=== PATIENT | male | born 1940 | race Caucasian/White ===

== ENCOUNTER 2016-09-17 03:41 | Emergency (ER) | payer MEDICARE, BC ==
[2016-09-17 04:31] VITALS: BP 120/69
--- NOTE | 2016-09-17 04:42 | ERNOTE ---
Medical Problem HPI - Narrative Date of Service: 09/17/16 - General Time Seen by Provider: 09/17/16 04:26 Source: patient - Immun/Allergies/Home Medications Immunizations: IMMUNIZATION HX Immunizations Up to Date Yes History of Influenza Vaccine Yes Hx Pneumococcal Vaccination Yes Allergies/Adverse Reactions: Allergies No Known Allergies Allergy (Verified 04/19/15 07:29) Home Medications: HOME MEDICATIONS Levothyroxine Sodium [Synthroid] 25 mcg PO DAILY 09/01/13 [Last Taken Unknown] Sildenafil Citrate [Viagra] 100 mg PO DAILY PRN 09/01/13 [Last Taken Unknown] Simvastatin [Zocor] 40 mg PO DAILY 09/01/13 [Last Taken Unknown] Testosterone Cypionate [Depo-Testosterone] 200 mg IM Q14D 09/01/13 [Last Taken Unknown] Cyanocobalamin [Vitamin B-12] 1,000 mcg PO DAILY 04/19/15 [Last Taken Unknown] Sildenafil Citrate [Viagra] 100 mg PO PRN PRN 04/19/15 [Last Taken Unknown] Ondansetron [Zofran Odt] 4 mg PO Q6H PRN #20 tab 09/17/16 [Last Taken Unknown] - History of Present History Narrative: pt has had some nausea and one episode of vomiting two days ago. Then he felt better and ate a hamburger yesterday. He was feeling well and watched the football game today. Now feels slightly nauseated. He has not been eating well today. Denies any fevers or chills. Review of Systems - Review of Systems Constitutional: Present: weakness EYE: Present: no symptoms reported ENT: Present: no symptoms reported Respiratory: Present: no symptoms reported Cardiology: Present: no symptoms reported Gastrointestinal/Abdominal: Present: nausea. Absent: vomiting Neurological: Present: no symptoms reported - Patient's Past Medical History Patient History - Surgical Procedures: Colonoscopy Patient History - Other: None - Family History Mother Family History - Medical: Family History - Cardiac/Respiratory: Myocardial Infarction Father Family History - Medical: Family History - Cardiac/Respiratory: Myocardial Infarction Brother Family History - Medical: Family History - Cardiac/Respiratory: Myocardial Infarction Sister Family History - Cardiac/Respiratory: Pulmonary Embolism - Social History Living Situations: spouse Abuse History: No History of abuse Psych History: No pertinent hx Alcohol Use: occasionally - Immunizations Immunizations Up to Date: Yes Hx Pneumococcal Vaccination: Yes History of Influenza Vaccine: Yes Physical Exam - Physical Exam Narrative: orthostatics are negative General Appearance: Present: wd/wn, alert, no apparent distress Eye Exam: Normal inspection: bilateral, PERRL: bilateral, EOMI: bilateral Ears, Nose, Throat: Present: normal ENT inspection, hearing grossly normal, normal pharynx Respiratory: Present: no respiratory distress, normal breath sounds, no accessory muscle use, chest nontender Cardiovascular/Chest: Present: regular rate, rhythm, no murmur, normal peripheral pulses Gastrointestinal/Abdominal: Present: normal bowel sounds, nontender, nondistended, soft Neurological Exam: Present: alert, oriented, normal mood/affect ED Progress - Vital Signs Patient's Vital Signs:: I have reviewed the patient's vital signs. Vital Signs: Vital Signs 09/17/16 04:27 Pulse Rate 68 Blood Pressure 120/69 Departure - Departure Clinical Impression: Nausea Disposition: Home Follow Up Needed Instructions: Rehydration, Adult Referrals: Jeffrey Crawford MD [Primary Care Provider] - Prescriptions: Ondansetron [Zofran Odt] 4 mg PO Q6H PRN #20 tab PRN Reason: Nausea
[2016-09-17] MEDS ORDERED: ONDANSETRON 4 MG TAB.RAPDIS ONE (04:48)
[2016-09-17] MEDS ORDERED: ONDANSETRON 4 MG TAB.RAPDIS PO ONE (04:49)
== END 2016-09-17 04:45 | disposition home or self-care (01) ==
LOC: ER 03:41
DX: R11.0 Nausea (principal)

== ENCOUNTER 2018-02-23 17:02 | Observation (INO) | payer BC, MEDICARE ==
[2018-02-23] MEDS ORDERED: ONDANSETRON HCL/PF 2 MG/ML VIAL IV ONE ×3 (17:12→18:28)
[2018-02-23] MEDS ORDERED: NORMAL SALINE 1,000 ML IV PRN (17:12)
--- NOTE | 2018-02-23 17:13 | ERNOTE ---
<Keyshawn Jefferson - Last Filed: 02/23/18 19:51> Syncope ER HPI Date of Service: 02/23/18 Stated Complaint: abdominal pain and vomiting Time Seen by Provider: 02/23/18 17:10 Source: patient, EMS Exam Limitations: no limitations Immunizations: IMMUNIZATION HX Immunizations Up to Date Yes Allergies/Adverse Reactions: Allergies No Known Allergies Allergy (Unverified 02/23/18 17:10) Home Medications: HOME MEDICATIONS Aspirin [Aspirin EC] 81 mg PO DAILY 02/23/18 [Last Taken Unknown] Levothyroxine Sodium [Synthroid] 50 mcg PO DAILY 02/23/18 [Last Taken Unknown] Multivitamin [Multivitamins] 1 each PO DAILY 02/23/18 [Last Taken Unknown] Polyethylene Glycol 3350 [Miralax] 17 gm PO DAILY PRN 02/23/18 [Last Taken Unknown] Sildenafil Citrate [Viagra] 100 mg PO DAILY PRN 02/23/18 [Last Taken Unknown] Simvastatin [Zocor] 40 mg PO DAILY 02/23/18 [Last Taken Unknown] Testosterone [Androgel] 100 mg TD DAILY 02/23/18 [Last Taken Unknown] - History of Present Illness Narrative: This patient is a 77-year-old male who arrived by ambulance after a syncopal episode. He said that he started not feeling well after breakfast at 8:30 AM. He had upper abdominal discomfort that he describes as his abdomen getting hard. He felt nauseated and was trying to vomit. While he was trying to vomit, he was sitting on the edge of the tub and had the syncopal episode. He has since vomited and feels better. He is not nauseated at this time. He denies fever or diarrhea. He has not had abdominal surgery. His last bowel movement was 2 days ago. He does not remember passing gas. Review of Systems - Review of Systems Constitutional: Present: chills, malaise EYE: Present: no symptoms reported ENT: Present: no symptoms reported Respiratory: Present: no symptoms reported Cardiology: Present: syncope, other - he has had skipped beats in the past which have been worked up. Absent: chest pain Gastrointestinal/Abdominal: Present: See HPI - there is no blood in the vomit Genitourinary: Present: no symptoms reported Musculoskeletal: Present: no symptoms reported Skin: Present: other - he was diaphoretic for the paramedics Neurological: Present: no symptoms reported Hematologic/Lymphatic: Absent: easy bleeding Psych: Present: no symptoms reported Medical History (Last Reviewed 02/23/18 @ 18:20 by Keyshawn Jefferson MD) Hyperlipidemia Hypothyroidism Surgical History: Surgical History (Last Reviewed 02/23/18 @ 18:20 by Keyshawn Jefferson MD) History of shoulder surgery Social History: Preferred Language Israeli Do you have any episcopalian or No cultural preference? Smoking Status Never smoker Alcohol Use heavy Drug Use none Physical Exam - Physical Exam General Appearance: Present: wd/wn, alert, no apparent distress Head Exam: Present: normal inspection, no evidence of injury Eye Exam: Normal inspection: bilateral Ears, Nose, Throat: Present: normal ENT inspection Neck: Present: normal inspection Respiratory: Present: no respiratory distress, normal breath sounds, no accessory muscle use, lungs clear Cardiovascular/Chest: Present: regular rate, rhythm, no murmur Gastrointestinal/Abdominal: Present: normal bowel sounds, nondistended, soft, no organomegaly, tenderness - he has epigastric tenderness with palpation. No rebound or guarding Extremity Exam: Present: non-tender, pedal edema Neurological Exam: Present: alert, oriented, normal mood/affect, no motor/ sensory deficits Skin Exam: Present: normal color, warm/dry ED Progress - Results and Orders Patient's Lab Results:: I have reviewed the patient's lab results. - Vital Signs Patient's Vital Signs:: I have reviewed the patient's vital signs. Vital Signs: Vital Signs 02/23/18 17:05 Temperature 36.2 C Pulse Rate 75 Respiratory Rate 12 Blood Pressure 146/79 O2 Sat by Pulse Oximetry 96 - X-Ray X-Ray #1 X-Ray: abdomen - dilated loops of bowel. No free air. - Progress/Reassessment Chief Complaint: Syncopal Episode - Transfer of Care Physician Sign Out: Keyshawn Jefferson Receiving Physician: Ronal Xavier Pending Results: CT/MRI results Expected Disposition: Admit Departure Clinical Impression: Small bowel obstruction - Departure Disposition: Still a patient Condition: Fair <Ronal Xavier - Last Filed: 02/23/18 22:54> Syncope ER HPI Immunizations: IMMUNIZATION HX Immunizations Up to Date Yes Medical History (Last Reviewed 02/23/18 @ 18:20 by Keyshawn Jefferson MD) Hyperlipidemia Hypothyroidism Surgical History: Surgical History (Last Reviewed 02/23/18 @ 18:20 by Keyshawn Jefferson MD) History of shoulder surgery Social History: Preferred Language Israeli Do you have any episcopalian or No cultural preference? Smoking Status Never smoker Alcohol Use heavy Drug Use none ED Progress - Date and Time Seen: Date and Time: 02/23/18 22:48 conditiion unchanged - Vital Signs Vital Signs: Vital Signs 02/23/18 17:05 02/23/18 17:28 02/23/18 17:29 Temperature 36.2 C Pulse Rate 75 76 75 Respiratory Rate 12 16 Blood Pressure 146/79 155/85 H O2 Sat by Pulse Oximetry 96 96 02/23/18 18:41 02/23/18 19:00 02/23/18 19:28 Temperature Pulse Rate 88 78 78 Respiratory Rate 18 20 18 Blood Pressure 150/78 H 142/78 141/82 O2 Sat by Pulse Oximetry 94 93 93 02/23/18 20:00 02/23/18 20:30 02/23/18 21:00 Temperature Pulse Rate 78 80 81 Respiratory Rate 19 21 H 12 Blood Pressure 147/78 137/78 145/82 O2 Sat by Pulse Oximetry 94 93 94 02/23/18 21:46 02/23/18 22:00 Temperature Pulse Rate 78 81 Respiratory Rate 16 17 Blood Pressure 155/85 H 144/89 O2 Sat by Pulse Oximetry 93 93 - X-Ray X-Ray #1 Interpretation: Interp. by me - small bowel obstruction - Progress/Reassessment Progress:: Unchanged Plan - Plan Plan: to be admitted case discussed with qing potts
[2018-02-23] MEDS ORDERED: ONDANSETRON HCL/PF 2 MG/ML VIAL ONE ×2 (17:30→18:28)
[2018-02-23 17:41] LABS: Hemoglobin 16.9 gm/dL (13.5-18.0); Mean Cell Volume 96.3 fl (78-100); Mean Corpuscular Hemoglobin 31.3 pg (27-31); Mean Corpuscular Hgb Conc 32.5 g/dl (32-36); Mean Platelet Volume 10.7 fl (8-11.3); Neutrophil # 7.4 K/mm3 (1.3-6.0); Neutrophil % 85.9 % (42-75.0); Platelet Count 197 K/mm3 (150-450); Red Cell Distribution Width 13.9 % (11.5-14.0); White Blood Count 8.6 K/mm3 (4.0-10.5)
[2018-02-23 17:43] LABS: Urine Appearance Clear (CLEAR); Urine Color Yellow
[2018-02-23 17:44] LABS: Urine Bacteria None Seen; Urine Bilirubin Negative (NEGATIVE); Urine Blood Negative /ul (NEGATIVE); Urine Ketone 5 mg/dL (NEGATIVE); Urine Nitrite Negative (NEGATIVE); Urine Protein Negative (NEGATIVE); Urine RBC None Seen /hpf (0-5); Urine Urobilinogen Normal (NORMAL); Urine WBC 0-5 /hpf (0-5)
[2018-02-23 17:49] LABS: Albumin * 3.5 gm/dl (3.4-5.0); Anion Gap 11.2 mmol/L (6.8-13.8); BUN/Creatinine Ratio 18.1 (9.0-21.6); Bilirubin, Total 0.5 mg/dL (0.0-1.1); Ca. Corrected For Albumin 8.8 mg/dL (8.4-10.2); Calcium * 8.7 mg/dL (7.9-10.9); Carbon Dioxide 31.1 mmol/L (24-32.6); Potassium 4.3 mmol/L (3.4-4.6); Total Protein 6.9 gm/dL (6.2-8.2)
[2018-02-23] MEDS ORDERED: DIATRIZOATE MEGLUMINE, SODIUM 30 ML BTL ONE (18:20)
[2018-02-23] MEDS ORDERED: DIATRIZOATE MEGLUMINE, SODIUM 30 ML BTL PO ONE (18:24)
[2018-02-23] MEDS ORDERED: ONDANSETRON HCL/PF 2 MG/ML VIAL IV PRN (22:56)
[2018-02-23] MEDS: NORMAL SALINE 1,000 ML IV PRN (23:09)
[2018-02-24] MEDS ORDERED: KETOROLAC TROMETHAMINE 30 MG/ML VIAL IV PRN (01:24)
[2018-02-24] MEDS: NORMAL SALINE 1,000 ML IV PRN (07:20)
--- NOTE | 2018-02-24 17:10 | HP ---
Chief Complaint - Chief Complaint Date of Service: 02/24/18 Time of Service: 08:00 Chief Complaint: Abdominal Pain History of Present Illness: Pranay is a 77 yo male presenting to [facility] ER with abdominal pain and no bowel movement for the last few days. He denies fever, chills. No change in diet or medications.Imaging in the ER shows evidence of bowel obstruction. Medical History (This Medical Record has been edited. Action required.) Varicose veins of lower extremity (Chronic) Hypothyroidism (Chronic) Hypogonadism (Chronic) GERD (gastroesophageal reflux disease) (Chronic) Sleep apnea (Chronic) Hyperlipidemia Hypothyroidism Wears glasses Surgical History: Surgical History (This Medical Record has been edited. Action required.) History of shoulder surgery [id number] Onset Date: ~05/27/12 H/O esophagogastroduodenoscopy Onset Date: ~09/08/13 H/O prostate biopsy Onset Date: ~02/2005 Hx of colonoscopy Onset Date: ~2004 rotator cuff repair Onset Date: ~10/10/09 stress test Onset Date: ~08/23/17 Family History: Family History (This Medical Record has been edited. Action required.) Brother Heart disease diabetes mellitus Brother Heart problem Father hyperlipidemia Thyroid disease Mother diabetes mellitus Sister No problems noted. Sister blood clot Mother Diabetes Father Heart disease Brother Heart disease Social History: Patient Lives/Resources With Spouse Utilized Occupation retired Preferred Language Georgian Do you have any confucianism or Yes: orthodox cultural preference? Smoking Status Never smoker Have you smoked in the past 12 No months Do you dip or chew tobacco No Alcohol Use heavy Drug Use none Review Of Systems (GEN) - Review of Systems Generalized/Overall Review: Present: Chills. Absent: Weakness, Fever EENTM: Present: No Symptoms Reported Respiratory: Absent: Cough, Shortness of Breath Cardiac: Absent: Chest Pain, Edema Abdominal: Present: Nausea, Abdominal Pain, Constipation Genitourinary: Present: No Symptoms Reported Musculoskeletal: Present: No Symptoms Reported Skin: Present: No Symptoms Reported Endocrine: Present: No Symptoms Reported Immunizations: IMMUNIZATION HX Immunizations Up to Date Yes Allergies/Adverse Reactions: Allergies Allergy/AdvReac Type Severity Reaction Status Date / Time No Known Allergies Allergy Verified 02/25/18 09:30 Home Medications: HOME MEDICATIONS Testosterone Cypionate [Depo-Testosterone] 200 mg IM Q14D 09/01/13 [Last Taken Unknown] Cyanocobalamin [Vitamin B-12] 1,000 mcg PO DAILY 04/19/15 [Last Taken Unknown] Sildenafil Citrate [Viagra] 100 mg PO PRN PRN 04/19/15 [Last Taken Unknown] Ondansetron [Zofran Odt] 4 mg PO Q6H PRN #20 tab 09/17/16 [Last Taken Unknown] aspirin 81 mg tablet,delayed release 81 mg PO DAILY 02/20/18 [Last Taken Unknown ] levothyroxine 50 mcg capsule 50 mcg PO DAILY 02/20/18 [Last Taken Unknown] multivitamin tablet 1 tab PO DAILY 02/20/18 [Last Taken Unknown] polyethylene glycol 3350 17 gram/dose oral powder PO 02/20/18 [Last Taken Unknown] simvastatin 40 mg tablet 40 mg PO DAILY 02/20/18 [Last Taken Unknown] testosterone 1 % (50 mg/5 gram) transdermal gel packet 2 packet TP DAILY [Last Taken Unknown] Aspirin [Aspirin EC] 81 mg PO DAILY 02/23/18 [Last Taken Unknown] Cetirizine HCl [Zyrtec] 10 mg PO DAILY PRN 02/23/18 [Last Taken Unknown] Levothyroxine Sodium [Synthroid] 50 mcg PO DAILY 02/23/18 [Last Taken Unknown] Multivitamin [Multivitamins] 1 each PO DAILY 02/23/18 [Last Taken Unknown] Polyethylene Glycol 3350 [Miralax] 17 gm PO DAILY PRN 02/23/18 [Last Taken Unknown] Sildenafil Citrate [Viagra] 100 mg PO DAILY PRN 02/23/18 [Last Taken Unknown] Simvastatin [Zocor] 40 mg PO DAILY 02/23/18 [Last Taken Unknown] Testosterone [Androgel] 100 mg TD DAILY 02/23/18 [Last Taken Unknown] Exam - Exam Vital Signs: Vital Signs - Last Taken Temp 36.7 C 02/24/18 14:25 Pulse 60 02/24/18 14:25 Resp 16 02/24/18 14:25 BP 126/63 02/24/18 14:25 Pulse Ox 96 02/24/18 14:25 Constitutional: Present: Alert, Oriented x3, Cooperative ENT Exam: Present: hearing grossly normal Eye Exam: bilateral eye: normal inspection Respiratory: Present: lungs clear, normal breath sounds Cardiovascular/Chest: Present: regular rate, rhythm, no edema, no murmur Abdomen: Present: tender - mild diffuse tenderness, hypoactive Skin Exam: Present: normal color, warm/dry, no cyanosis Appearance: Present: appropriate appearance, appropriate insight Eye contact: Present: cooperative, good eye contact Diagnostic Studies: Abnormal Lab Results 02/23/18 02/23/18 Range/Units 17:31 17:31 MCH 31.3 H (27-31) pg Neutrophils % 85.9 H (42-75.0) % Lymphocytes % 7.7 L (20-51) % Neutrophils # 7.4 H (1.3-6.0) K/mm3 Lymphocytes # 0.66 L (1.5-3.5) k/mm3 Sodium 144 H (132-142) mmol/L Plasma Sodium 145 H (130-142) mmol/L Random Glucose 143 H (70-110) mg/dL Laboratory Results WBC 8.6 K/mm3 (4.0-10.5) 02/23/18 17:31 RBC 5.40 M/mm3 (4.7-6.0) 02/23/18 17:31 Hgb 16.9 gm/dL (13.5-18.0) 02/23/18 17:31 Hct 52.0 % (42.0-52.0) 02/23/18 17:31 MCV 96.3 fl (78-100) 02/23/18 17:31 MCH 31.3 pg (27-31) H 02/23/18 17:31 MCHC 32.5 g/dl (32-36) 02/23/18 17:31 RDW 13.9 % (11.5-14.0) 02/23/18 17:31 Plt Count 197 K/mm3 (150-450) 02/23/18 17:31 MPV 10.7 fl (8-11.3) 02/23/18 17:31 Immature Gran % (Auto) 0.10 % (0.001-0.429) 02/23/18 17:31 Immature Gran # (Auto) 0.01 K/mm3 (0.000-0.0310) 02/23/18 17:31 Neutrophils % 85.9 % (42-75.0) H 02/23/18 17:31 Lymphocytes % 7.7 % (20-51) L 02/23/18 17:31 Monocytes % 5.6 % (0.0-9) 02/23/18 17:31 Eosinophils % 0.5 % (0.0-3.0) 02/23/18 17:31 Basophils % 0.2 % (0.0-1.0) 02/23/18 17:31 Nucleated RBC % 0.0 k/mm3 (0-1) 02/23/18 17:31 Neutrophils # 7.4 K/mm3 (1.3-6.0) H 02/23/18 17:31 Lymphocytes # 0.66 k/mm3 (1.5-3.5) L 02/23/18 17:31 Monocytes # 0.5 k/mm3 (0.0-1.0) 02/23/18 17:31 Eosinophils # 0.0 k/mm3 (0.0-0.7) 02/23/18 17:31 Absolute Basophils 0.0 k/mm3 (0.0-0.1) 02/23/18 17:31 Sodium 144 mmol/L (132-142) H 02/23/18 17:31 Plasma Sodium 145 mmol/L (130-142) H 02/23/18 17:31 Potassium 4.3 mmol/L (3.4-4.6) 02/23/18 17:31 Chloride 106 mmol/L (97-106) 02/23/18 17:31 Carbon Dioxide 31.1 mmol/L (24-32.6) 02/23/18 17:31 Anion Gap 11.2 mmol/L (6.8-13.8) 02/23/18 17:31 BUN 19 mg/dL (6-23) 02/23/18 17:31 Creatinine 1.05 mg/dL (0.4-1.4) 02/23/18 17:31 Est GFR (Non-Af Amer) 73 mL/min (60-130) 02/23/18 17:31 BUN/Creatinine Ratio 18.1 (9.0-21.6) 02/23/18 17:31 Random Glucose 143 mg/dL (70-110) H 02/23/18 17:31 Calcium 8.7 mg/dL (7.9-10.9) 02/23/18 17:31 Calcium Adj for Albumin 8.8 mg/dL (8.4-10.2) 02/23/18 17:31 Total Bilirubin 0.5 mg/dL (0.0-1.1) 02/23/18 17:31 AST 18 U/L (0-48) 02/23/18 17:31 ALT 21 U/L (19-67) 02/23/18 17:31 Alkaline Phosphatase 61 U/L (50-170) 02/23/18 17:31 Total Protein 6.9 gm/dL (6.2-8.2) 02/23/18 17:31 Albumin 3.5 gm/dl (3.4-5.0) 02/23/18 17:31 Lipase 86 U/L (73-393) 02/23/18 17:31 Urine Color Yellow 02/23/18 17:31 Urine Appearance Clear (CLEAR) 02/23/18 17:31 Urine pH 7.0 pH (5.0-7.0) 02/23/18 17:31 Ur Specific [place] 1.020 SP.GR. (1.005-1.030) 02/23/18 17:31 Urine Protein Negative mg/dL (NEGATIVE) 02/23/18 17:31 Urine Glucose (UA) Negative mg/dL (NEGATIVE) 02/23/18 17:31 Urine Ketones 5 mg/dL (NEGATIVE) 02/23/18 17:31 Urine Blood Negative /ul (NEGATIVE) 02/23/18 17:31 Urine Nitrate Negative (NEGATIVE) 02/23/18 17:31 Urine Bilirubin Negative mg/dl (NEGATIVE) 02/23/18 17:31 Urine Urobilinogen Normal EU/dl (NORMAL) 02/23/18 17:31 Ur Leukocyte Esterase Negative /ul (NEGATIVE) 02/23/18 17:31 Urine RBC None seen /hpf (0-5) 02/23/18 17:31 Urine WBC 0-5 /hpf (0-5) 02/23/18 17:31 Ur Epithelial Cells 0-5 /hpf (0-5) 02/23/18 17:31 Urine Bacteria None seen (NONE) 02/23/18 17:31 Urine Culture Comments No culture indicated 02/23/18 17:31 Assessment/Plan - Narrative Narrative: Pranay is a 77 yo male with small bowel obstruction. Will make NPO and rest bowels. Will monitor in observation if worsening may need NG tube. If symptoms improve will advance diet as tolerated. - Assessment/Plan (1) Small bowel obstruction Problem: Acute
--- NOTE | 2018-02-24 17:15 | DS ---
(1) Small bowel obstruction Problem: Acute Description of Stay: Pranay is a 77 yo male that presented to the [facility] ER with abdominal pain. Imaging showed evidence of small bowel obstruction. He was made NPO overnight and monitored. In the morning his abdominal pain was improved and he was having bowel movements. His diet was advanced and tolerated well. He was then discharged to home. He has a previously scheduled appointment with Dr. Crawford tomorrow and he will keep that appointment. There are no changes at this time to his medication. Procedures Performed: none Results and Findings: Lab Pending Results 02/23/18 02/23/18 02/23/18 17:31 17:31 17:31 WBC 8.6 RBC 5.40 Hgb 16.9 Hct 52.0 MCV 96.3 MCH 31.3 H MCHC 32.5 RDW 13.9 Plt Count 197 MPV 10.7 Immature Gran % (Auto) 0.10 Immature Gran # (Auto) 0.01 Neutrophils % 85.9 H Lymphocytes % 7.7 L Monocytes % 5.6 Eosinophils % 0.5 Basophils % 0.2 Nucleated RBC % 0.0 Neutrophils # 7.4 H Lymphocytes # 0.66 L Monocytes # 0.5 Eosinophils # 0.0 Absolute Basophils 0.0 Sodium 144 H Plasma Sodium 145 H Potassium 4.3 Chloride 106 Carbon Dioxide 31.1 Anion Gap 11.2 BUN 19 Creatinine 1.05 Est GFR (Non-Af Amer) 73 BUN/Creatinine Ratio 18.1 Random Glucose 143 H Calcium 8.7 Calcium Adj for Albumin 8.8 Total Bilirubin 0.5 AST 18 ALT 21 Alkaline Phosphatase 61 Total Protein 6.9 Albumin 3.5 Lipase 86 Urine Color Yellow Urine Appearance Clear Urine pH 7.0 Ur Specific [place] 1.020 Urine Protein Negative Urine Glucose (UA) Negative Urine Ketones 5 Urine Blood Negative Urine Nitrate Negative Urine Bilirubin Negative Urine Urobilinogen Normal Ur Leukocyte Esterase Negative Urine RBC None seen Urine WBC 0-5 Ur Epithelial Cells 0-5 Urine Bacteria None seen Urine Culture Comments No culture indicated Discharge Location: Home Disposition: Home self-care Condition: Fair Discharge Activity: Activity as tolerated Discharge Diet: General/regular food Referrals: Jeffrey Crawford MD [Primary Care Provider] - 02/25/18 (Patient has scheduled appointment with Dr. Crawford tomorrow.) Problem Oriented Discharge Instructions to Patient/Family: Small Bowel Obstruction, [id number] Additional Patient Instructions (free text): -Please make TCM appointment unless [facility] discharge. Thank you! [place] @ [phone]. Complete Home Medications List: Complete Home Medication List: Aspirin [Aspirin EC] 81 mg PO DAILY 02/23/18 Cetirizine HCl [Zyrtec] 10 mg PO DAILY PRN 02/23/18 Levothyroxine Sodium [Synthroid] 50 mcg PO DAILY 02/23/18 Multivitamin [Multivitamins] 1 each PO DAILY 02/23/18 Polyethylene Glycol 3350 [Miralax] 17 gm PO DAILY PRN 02/23/18 Sildenafil Citrate [Viagra] 100 mg PO DAILY PRN 02/23/18 Simvastatin [Zocor] 40 mg PO DAILY 02/23/18 Testosterone [Androgel] 100 mg TD DAILY 02/23/18
[2018-02-24 20:07] VITALS: BP 123/61
== END 2018-02-24 19:55 | disposition home or self-care (01) ==
LOC: MS 17:02 → ER 17:02 → MERGE 22:38 → MS 23:10
PROVIDERS: ADMIT Family Medicine; ATTEND Internal Medicine
CPT/HCPCS: 36415; 74019; 74020; 74177; 80053; 81001; 83690; 84443; 85025; 96361; 96365; 96375; 96376; 99284; G0378; J2405